=== PATIENT | female | born 1990 | race African-American/Black ===

== ENCOUNTER 2020-04-13 18:37 | Emergency (ER) | payer MEDICAID ==
[~2020-04-13] VITALS: Ht 172.7 cm; Wt 120.2 kg
[2020-04-13 18:52] VITALS: BP 132/87
== END 2020-04-13 21:09 | disposition left against medical advice (07) ==
LOC: ER 18:40
DX: R11.2 Nausea with vomiting, unspecified (principal); R06.02 Shortness of breath; Z53.21 Procedure and treatment not carried out due to patient leaving prior to being seen by health care provider

== ENCOUNTER 2023-07-28 10:23 | Emergency (ER) | payer MEDICAID ==
[~2023-07-28] VITALS: Ht 172.7 cm; Wt 110.4 kg
[2023-07-28 10:46] VITALS: BP 109/73; PULSE 62; RESP 16; O2SAT 99
[2023-07-28 11:41] LABS: Urine Bacteria None Seen /hpf (None Seen)
[2023-07-28 11:42] LABS: Hematocrit 35.5 % (36.0-46.0); Hemoglobin 11.7 g/dL (12.2-16.2); Mean Corpuscular Hemoglobin 27.1 pg (28.0-32.0); Mean Corpuscular Hgb Conc. 33.1 g/dL (32.0-36.0); Mean Corpuscular Volume 81.8 fL (80.0-100.0); Red Blood Cells 4.34 10^6/uL (4.0-5.20); Red Cell Distribution Width 14.3 % (11.8-14.3); White Blood Cell 4.1 10^3/uL (4.4-10.8)
[2023-07-28 11:45] LABS: Band Neutrophils % (manual) 0; Basophils % (manual) 0 (0.0-2.0); Blast Cells 0; Metamyelocytes % 0; Myelocytes % 0; Promyelocytes % 0; Reactive Lymphocytes 0
[2023-07-28 11:52] LABS: Chloride 109 mmol/L (98-107); Potassium 3.3 mmol/L (3.5-5.1); Sodium 143 mmol/L (136-145)
[2023-07-28 11:53] LABS: Anion Gap 7 (5-15); Calcium 9.1 mg/dL (8.5-10.1); Carbon Dioxide 27 mmol/L (20-30)
[2023-07-28 11:58] LABS: BUN/Creatinine Ratio 13.3 (10.0-20.0); Blood Urea Nitrogen 10 mg/dL (9-23); Glucose 90 mg/dL (74-106)
[2023-07-28 12:24] LABS: Urine Blood TRACE /uL (Negative); Urine Clarity Clear (Clear); Urine Color Yellow (Yellow); Urine Mucus FEW (None Seen); Urine Protein, UAD TRACE (Negative); Urine Specific Gravity 1.023 (1.001-1.035); Urine Urobilinogen Normal (Negative); Urine WBC 4 /hpf (0 - 5); Urine pH 6.5 (5.0-9.0)
[2023-07-28 13:05] LABS: Eosinophils % (manual) 2 (0-7); Lymphocytes % (manual) 79 (10.0-50.0); Monocytes % (manual) 6 (0-12)
[2023-07-28 13:06] LABS: Platelet Estimate Adequate
== END 2023-07-28 17:11 | disposition left against medical advice (07) ==
LOC: ER 10:23
DX: S09.8XXA Other specified injuries of head, initial encounter (principal); R10.2 Pelvic and perineal pain; Y04.2XXA Assault by strike against or bumped into by another person, initial encounter; Y93.89 Activity, other specified; Y92.89 Other specified places as the place of occurrence of the external cause; Y99.8 Other external cause status
CPT/HCPCS: 36415; 70450; 80048; 81001; 84702; 85007; 85027